=== PATIENT | female | born 1970 | race Caucasian/White ===

== ENCOUNTER → 2017-03-01 | Outpatient (CLI) | payer OTHER ==
[~2017-03-01] MED LIST: ASPRIN PO; COUMADIN 5MG5 MG/TAB PO; COUMADIN 6MG6 MG/TAB PO; LORTAB 5/500 501 TAB PO; LOVENOX 6060 MG/0.6 SQ; MULTIPLE VITAMI1 CAP PO; NAPROXEN EC500 MG PO; PRENATAL VITAMI1 TA5 PO; ST. JOSEPH81 M2 PO
== END ==
LOC: COL.VAS 08:00
DX: I82.501 Chronic embolism and thrombosis of unspecified deep veins of right lower extremity (principal)

== ENCOUNTER → 2017-04-06 | Outpatient (CLI) | payer OTHER | LOC: MC.RAD 12:46 | DX: Z12.39 Encounter for other screening for malignant neoplasm of breast (principal) ==

== ENCOUNTER → 2018-07-18 | Outpatient (CLI) | payer OTHER | LOC: COL.RAD 09:00 | DX: E04.1 Nontoxic single thyroid nodule (principal); R13.10 Dysphagia, unspecified ==

== ENCOUNTER → 2018-08-02 | Outpatient (CLI) | payer OTHER | LOC: COL.RAD 09:36 | DX: R10.2 Pelvic and perineal pain (principal) ==

== ENCOUNTER 2020-06-21 11:21 | Emergency (ER) | payer OTHER ==
[~2020-06-21] VITALS: Ht 160 cm; Wt 54.5 kg
[2020-06-21 11:24] VITALS: BP 148/79; TEMP 98.4
[2020-06-21 12:10] LABS: COLLECTION METHOD CLEAN CATCH
[2020-06-21 12:30] LABS: PH 6 (5-8); SQUAMOUS EPITHELIAL None Seen /hpf; URINE APPEARANCE Clear; URINE BACTERIA None Seen /hpf; URINE BILIRUBIN Negative (NEGATIVE); URINE BLOOD 1+ (NEGATIVE); URINE COLOR Straw; URINE GLUCOSE Negative (NEGATIVE); URINE KETONE Negative (NEGATIVE); URINE LEUKOCYTE ESTERASE Negative (NEGATIVE); URINE NITRATE Negative (NEGATIVE); URINE PROTEIN(semi-quant) Negative (NEGATIVE); URINE RBC 0-2 /hpf; URINE UROBILINOGEN Negative (NEGATIVE)
[2020-06-21 12:35] LABS: ALANINE AMINOTRANSFERASE 34 U/L (4-34); ALBUMIN 4.4 gm/dL (3.5-5.0); ALKALINE PHOSPHATASE 88 U/L (50-136); ANION GAP 12 mmol/L (7-16); AST,SGOT 41 U/L (15-37); BILIRUBIN,TOTAL 0.4 mg/dL (0.0-1.0); BLOOD UREA NITROGEN 6 mg/dL (7-17); CALCIUM 9.3 mg/dL (8.4-10.2); CARBON DIOXIDE 23 mmol/L (22-30); CHLORIDE 104 mmol/L (98-107); CREATINE KINASE 65 U/L (30-135); CREATININE, serum 0.59 (0.52-1.25); GLUCOSE 116 mg/dL (74-106); LIPASE 51 U/L (23-300); MAGNESIUM 2.1 mg/dL (1.6-2.3); POTASSIUM 3.7 mmol/L (3.4-5.0); SODIUM 139 mmol/L (137-145); TOTAL PROTEIN 8.1 gm/dL (6.4-8.2)
[2020-06-21 12:36] LABS: C-REACTIVE PROTEIN < 0.5 mg/dL (0.0-0.9)
[2020-06-21 12:44] LABS: BASO # 0.1 (0.0-0.2); EOS % 0.1 % (0-4.0); GRAN # 5.1 (1.4-6.5); GRAN % 74.3 % (42.2-75.2); HEMATOCRIT 43.1 % (37.0-47.0); HEMOGLOBIN 14.6 g/dl (12.5-16.0); LYMPH # 1.1 (1.2-3.4); LYMPH % 15.5 % (20.0-51.0); MEAN CELL VOLUME 91 fl (80.0-100.0); MEAN CORPUSCULAR HEMOGLOBIN 31 pg (27.0-31.0); MEAN CORPUSCULAR HGB CONC 34 g/dl (33.0-37.0); MEAN PLATELET VOLUME 10.6 fl (7.4-10.4); MONO # 0.6 (0.1-0.6); MONO % 8.8 % (1.7-9.3); PLATELET COUNT 288 K/mm3 (130-400); RED BLOOD COUNT 4.74 M/mm3 (4.10-5.30); REDCELL DISTRIBUTION WIDTH-CV 12.4 % (11.5-14.5)
[2020-06-21 12:45] LABS: TROPONIN-I < 0.012 ng/mL (0.000-0.035)
[2020-06-21] MEDS ORDERED: NORCO 325 MG-51 TAB PO (14:07)
[2020-06-21] MEDS ORDERED: FLEXERIL 1010 MG/TAB PO (14:07)
[2020-06-21 14:20] VITALS: PULSE 62
== END 2020-06-21 14:20 | disposition home or self-care (01) ==
LOC: COL.ER 11:21
PROVIDERS: Emergency Medicine
DX: R10.9 Unspecified abdominal pain (principal); M79.652 Pain in left thigh; M79.651 Pain in right thigh; Z86.718 Personal history of other venous thrombosis and embolism
CPT/HCPCS: J3010; J7030; Q9967

== ENCOUNTER 2020-11-19 14:37 | Outpatient (RCR) | payer OTHER ==
[~2020-11-19 14:37] MED LIST changes: +FLEXERIL 1010 MG/TAB PO; +NORCO 325 MG-51 TAB PO
== END 2021-02-17 | disposition home or self-care (01) ==
LOC: WSPT
DX: I89.0 Lymphedema, not elsewhere classified (principal); Q96.9 Turner's syndrome, unspecified

== ENCOUNTER 2021-04-08 14:30 | Outpatient (RCR) | payer OTHER | END 2021-06-05 | disposition home or self-care (01) | LOC: WSPT | DX: I89.0 Lymphedema, not elsewhere classified (principal); I80.8 Phlebitis and thrombophlebitis of other sites ==

== ENCOUNTER 2023-02-16 16:39 | Emergency (ER) | payer OTHER ==
[~2023-02-16] VITALS: Ht 160 cm; Wt 59.1 kg
[2023-02-16 16:47] VITALS: TEMP 98.8
[2023-02-16 18:28] LABS: INR 2.3 (0.8-3.0); PROTHROMBIN TIME 26.5 SECONDS (9.7-12.8)
[2023-02-16 18:55] VITALS: BP 178/97; PULSE 112
== END 2023-02-16 19:02 | disposition home or self-care (01) ==
LOC: COL.ER 16:39
PROVIDERS: Physician Assistant
DX: S93.602A Unspecified sprain of left foot, initial encounter (principal); Z79.01 Long term (current) use of anticoagulants; X58.XXXA Exposure to other specified factors, initial encounter; Y92.59 Other trade areas as the place of occurrence of the external cause; Y99.0 Civilian activity done for income or pay